=== PATIENT | female | born 2000 | race Caucasian/White ===

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

== ENCOUNTER 2020-04-30 22:40 | Emergency (ER) | payer BC, OTHER ==
--- NOTE | 2020-04-30 23:25 | RAD ---
Right ankle 3 views HISTORY: Fall. Injury. FINDINGS: Ankle mortise and talar dome are intact. No acute fracture or dislocation. No radiopaque foreign bodies. IMPRESSION : No abnormalities are demonstrated.
== END 2020-05-01 00:20 | disposition home or self-care (01) ==
LOC: ERS 22:40
DX: S93.401A Sprain of unspecified ligament of right ankle, initial encounter (principal); W01.0XXA Fall on same level from slipping, tripping and stumbling without subsequent striking against object, initial encounter

== ENCOUNTER 2020-05-21 07:44 | Outpatient (CLI) | payer BC ==
[2020-05-21 09:36] LABS: BHCG - Serum Negative (NEGATIVE); Pregs Control Background? CLEAR/WHITE (CLR/WHITE); Pregs Control Bar Appear? YES (CONTROL BAR)
[2020-05-21 23:27] LABS: SARS-CoV-2 PCR by NAA Not Detected (NotDetected)
== END 2020-05-21 07:45 | disposition home or self-care (01) ==
LOC: LABBT 07:44
PROVIDERS: ATTEND Specialist
DX: Z01.812 Encounter for preprocedural laboratory examination (principal); Z20.822 Contact with and (suspected) exposure to COVID-19; J35.01 Chronic tonsillitis; G47.30 Sleep apnea, unspecified
CPT/HCPCS: 84703; 85014; 87635; U0003; U0005

== ENCOUNTER 2020-05-24 07:47 | Day surgery (SDC) | payer BC ==
[2020-05-23 11:20] VITALS: BMI 27.3
[2020-05-24] MEDS ORDERED: Fentanyl 100 MCG/2 ML VIAL ONE ×3 (09:53→11:25)
[2020-05-24] MEDS ORDERED: Ondansetron PF 4 MG/2 ML Vial ONE ×2 (10:15→11:24)
[2020-05-24] MEDS ORDERED: Dexamethasone 20 MG/5 ML VIAL ONE (10:15)
[2020-05-24] MEDS ORDERED: Lidocaine 1% PF 5 ML VIAL ONE (10:15)
[2020-05-24] MEDS ORDERED: PROPOFOL 200 MG/20 ML VIAL ONE (10:15)
[2020-05-24] MEDS ORDERED: Ferric Subsulfate (ASTRINGYN) 8 GM VIAL ONE (10:38)
[2020-05-24] MEDS ORDERED: Promethazine HCl 25 MG/ML VIAL ONE (12:13)
== END 2020-05-24 13:05 | disposition home or self-care (01) ==
LOC: SDC 07:47
PROVIDERS: ATTEND Specialist
PROC: 0CTPXZZ Resection of Tonsils, External Approach (ICD-10-PCS; principal; 2020-05-24)
DX: J35.01 Chronic tonsillitis (principal); G47.33 Obstructive sleep apnea (adult) (pediatric); J30.2 Other seasonal allergic rhinitis; Z88.2 Allergy status to sulfonamides
CPT/HCPCS: 88304; J1100; J2405; J2550; J2704; J3010

== ENCOUNTER 2025-02-08 10:49 | Outpatient (CLI) | payer BC | END 2025-02-08 10:50 | disposition home or self-care (01) | LOC: BICRAD 10:49 | PROVIDERS: ATTEND Internal Medicine | DX: M54.2 Cervicalgia (principal); M50.323 Other cervical disc degeneration at C6-C7 level | CPT/HCPCS: 72040 ==